=== PATIENT | female | born 1960 | race African-American/Black ===

== ENCOUNTER 2017-09-04 12:29 | Emergency (ER) | payer OTHER ==
[~2017-09-04] VITALS: Ht 174 cm; Wt 69.0 kg
[~2017-09-04 12:29] MED LIST: ACET325T11 PO; BUPR150T3 PO; FLON0.053; TOPA100T8 PO; TRAZ150T75 PO; ZIPR40 PO
[2017-09-04 12:32] VITALS: BP 151/75; PULSE 87; RESP 16; TEMP 98.3; O2SAT 99
[2017-09-04] MEDS ORDERED: ZIPR20 PO (12:57)
[2017-09-04] MEDS ORDERED: LISI10TA3 PO (12:57)
[2017-09-04] MEDS ORDERED: WELLTAB39 PO (12:57)
[2017-09-04] MEDS ORDERED: GEOD80CA PO (12:57)
[2017-09-04] MEDS ORDERED: [UNRECOGNIZED DRUG - CODE] T-DERMAL (12:57)
[2017-09-04] MEDS ORDERED: ATOR20TA15 PO (12:57)
[2017-09-04] MEDS ORDERED: EFFE150C PO (12:57)
--- NOTE | 2017-09-04 13:33 | RADRPT ---
EXAM DATE/TIME: 09/04/2017 12:59 [facility] COMPARISON: None. INDICATIONS : <<Left 4th digit pain; twisted this morning. >> MEDICAL HISTORY : None. SURGICAL HISTORY : None. ENCOUNTER: Initial ACUITY: 1 day PAIN SCORE: 9/10 LOCATION: Left 4th digit; hand. FINDINGS: Examination of the fourth digit of the left hand demonstrates no evidence of fracture or dislocation. No radiopaque foreign bodies are seen. The soft tissues are swollen at the fourth finger. CONCLUSION: Soft tissue swelling at the left fourth finger. No acute bony abnormality identified. Domo Webb MD on September 04, 2017 at 13:30 Board Certified Radiologist. This report was verified electronically.
[2017-09-04] MEDS ORDERED: ACETAMINOPHEN/HYDROcodone 325 MG/5 MG TAB PO ONE (14:00)
--- NOTE | 2017-09-04 14:05 | PD ---
HPI Chief Complaint: Injury Time Seen by Provider: 12:39 Travel History International Travel<30 days: No Contact w/Intl Traveler<30days: No Traveled to known affect area: No History of Present Illness HPI 57-year-old female that presents to the ED for evaluation of injury to her left fourth finger. Patient reports that this happened this morning. Per patient she was walking her dog when her dog ran away and the leash the dog caught her on her left fourth digit. She had a lot of pain and discomfort especially with extension of the left 4 digit. Per patient she cannot do it without assistance. Patient does have swelling and bruising noted on the dorsal aspect of the digit. Good capillary refill. Sensation intact bilaterally. No obvious open skin noted. Very tender to touch. Allergies to different antibiotics. Pain per patient is 6 out of 10. Gets worse with movement and touch. No prior injuries. PFSH Past Medical History Hx Anticoagulant Therapy: No ADD: Yes ADHD: Yes Arthritis: No Asthma: Yes (as a child) Blood Disorders: No Bipolar Disorder: Yes Anxiety: Yes Depression: Yes Cancer: No Cardiovascular Problems: Yes (HTN, CHOL) High Cholesterol: Yes Chemotherapy: No COPD: No Diabetes: Yes Diminished Hearing: No Endocrine: No Gastrointestinal Disorders: Yes GERD: Yes Genitourinary: No Hypertension: Yes Immune Disorder: No Musculoskeletal: No Neurologic: Yes (sciatic nerve) Psychiatric: Yes Reproductive: No Respiratory: No Radiation Therapy: No Schizophrenia: Yes Sleep Apnea: Yes ?: Not Menopausal: No : 6 Para: 2 Tubal Ligation: Yes Past Surgical History Abdominal Surgery: Yes Cardiac Surgery: No Section: Yes Ear Surgery: No Endocrine Surgery: No Eye Surgery: No Genitourinary Surgery: No Gynecologic Surgery: Yes () Oral Surgery: No Thoracic Surgery: No Other Surgery: Yes Social History Alcohol Use: No Tobacco Use: Yes (06/28 PPD) Allergies-Medications (Allergen,Severity, Reaction): Coded Allergies: ampicillin (Unverified Allergy, Severe, RASH, 09/04/17) bacitracin (Unverified Allergy, Severe, RASH, 09/04/17) erythromycin base (Unverified Allergy, Severe, HIVES, 09/04/17) gramicidin D (Unverified Allergy, Severe, RASH, 09/04/17) neomycin (Unverified Allergy, Severe, RASH, 09/04/17) polymyxin B (Unverified Allergy, Severe, RASH, 09/04/17) Reported Meds & Prescriptions Reported Meds & Active Scripts Active Hydrocodone-Acetaminophen 5-325 mg Tab 1 Tab PO Q6H PRN Diclofenac Sodium DR (Diclofenac Sodium) 75 Mg Tabdr 75 Mg PO BID PRN Reported Daytrana Patch 9 HR (Methylphenidate Patch 9 HR) 30 Mg/9 Hr Patch 1 Patch T- DERMAL DAILY Remove after 9 hours Lisinopril 10 Mg Tab 10 Mg PO DAILY Atorvastatin (Atorvastatin Calcium) 20 Mg Tab 20 Mg PO DAILY Effexor XR 24 HR (Venlafaxine HCl) 150 Mg Cap 300 Mg PO DAILY Wellbutrin Xl 24 HR (Bupropion HCl) 300 Mg Tab 450 Mg PO DAILY Geodon (Ziprasidone) 80 Mg Cap 80 Mg PO HS Geodon (Ziprasidone) 20 Mg Cap 20 Mg PO DAILY Review of Systems Except as stated in HPI: all other systems reviewed are Neg Physical Exam Narrative GENERAL: SKIN: Warm and dry. HEAD: Atraumatic. Normocephalic. EYES: Pupils equal and round. No scleral icterus. No injection or drainage. ENT: No nasal bleeding or discharge. Mucous membranes pink and moist. NECK: Trachea midline. No JVD. CARDIOVASCULAR: Regular rate and rhythm. RESPIRATORY: No accessory muscle use. Clear to auscultation. Breath sounds equal bilaterally. GASTROINTESTINAL: Abdomen soft, non-tender, nondistended. Hepatic and splenic margins not palpable. MUSCULOSKELETAL: Extremities without clubbing, cyanosis, or edema. No obvious deformities. Full range of motion of the upper and lower extremity bilaterally with exception of the left fourth digit of the left hand. Patient does have significant bruising and swelling on the dorsal aspect of the left fourth digit on the PIP joint. She has the finger flexed at this level and cannot extend it without help. Patient can extend it passively up to 90 but with a lot of discomfort. She cannot do it otherwise. Good capillary refill. Sensation intact bilaterally. NEUROLOGICAL: Awake and alert. No obvious cranial nerve deficits. Motor grossly within normal limits. Five out of 5 muscle strength in the arms and legs. Normal speech. PSYCHIATRIC: Appropriate mood and affect; insight and judgment normal. Data Data Last Documented VS Vital Signs Date Time Temp Pulse Resp B/P (MAP) Pulse Ox O2 Delivery O2 Flow Rate FiO2 09/04/17 12:32 98.3 87 16 151/75 (100) 99 Orders Orders Finger ([id number]) (09/04/17 ) Mri Hand W/O Contrast (09/04/17 ) Splint Or Brace Apply/Monitor (09/04/17 13:45) Acetamin-Hydrocod 325-5 Mg (Spiro 5-325 (09/04/17 14:00) Ed Discharge Order (09/04/17 16:11) MDM Medical Decision Making Medical Screen Exam Complete: Yes Emergency Medical Condition: Yes Medical Record Reviewed: Yes Interpretation(s) Last Impressions Finger X-Ray 09/04/17 0000 Signed Impressions: Service Date/Time: Monday, September 04, 2017 12:59 - CONCLUSION: Soft tissue swelling at the left fourth finger. No acute bony abnormality identified. Domo Webb MD Last Impressions Finger X-Ray 09/04/17 0000 Signed Impressions: Service Date/Time: Monday, September 04, 2017 12:59 - CONCLUSION: Soft tissue swelling at the left fourth finger. No acute bony abnormality identified. Domo Webb MD MRI showed anterior subluxation of the middle phalanx associated with some dorsal ligamentous injury and possible hairline fracture of proximal phalanx. flexor tendon intact. Differential Diagnosis Fracture versus sprain versus strain versus contusion versus tendon injury Narrative Course 57-year-old female that presents to the ED for evaluation of left fourth digit injury. Patient was properly examined and was found to have signs and symptoms concerning for bony injury versus ligamental injury. X-ray was done and was negative for this. Patient still having a lot of difficulty extending the finger. Spoke with Dr. Marlow over the phone who recommends MRI, splint and follow-up outpatient. Patient was told this and agrees with plan. MRI was ordered. MRI show what appears to be her long fracture as well as what appears to be likely injury to the dorsal ligamentous aspect of the digit. At this time patient will be put in splint. Patient was told results. Given copy of MRI. Patient was given prescription for Lortab and diclofenac sodium. Patient understands she needs to follow with hand surgeon this week. See ED worsening symptoms. Follow with PCP. Diagnosis Primary Impression: Finger fracture, left Qualified Codes: S62.645A - Nondisplaced fracture of proximal phalanx of left ring finger, initial encounter for closed fracture Additional Impression: Ligament tear Referrals: Agustin Sommer III, MD,Hussain Beckman MD, MD,Mary Ann Bledsoe MD Patient Instructions: Narcotic given in the ED, General Instructions Additional Instructions: Take medications as prescribed. Follow-up with hand surgeon this week. Call your primary to refer you to one or you can follow with one of the ones provided. See ED for any worsening symptoms. Do not drink or drive while taking pain medication. Apply ice or heat as needed for pain Med/Other Pt SpecificInfo: Prescription(s) given Scripts Hydrocodone-Acetaminophen (Hydrocodone-Acetaminophen) 5-325 mg Tab 1 TAB PO Q6H Y for PAIN, #12 TAB 0 Refills Prov: Paulo Hallman MD 09/04/[address] (Diclofenac Sodium DR) 75 Mg Tabdr 75 MG PO BID Y for PAIN SCALE 1 TO 10, #20 TAB 0 Refills Prov: Paulo Hallman MD 09/04/17 Disposition: 01 DISCHARGE HOME Condition: Rehan Roque Sep 04, 2017 14:05
[2017-09-04] MEDS ORDERED: DICL75TA PO (14:08)
[2017-09-04] MEDS ORDERED: HYDR-3516 PO (14:08)
[2017-09-04 15:32] VITALS: RESP 19
--- NOTE | 2017-09-04 16:08 | RADRPT ---
EXAM DATE/TIME: 09/04/2017 15:22 [facility] COMPARISON: None. INDICATIONS : <<Pt injured 4th digit walking dog with leash. Pulling injury.>> MEDICAL HISTORY : Hypertension. SURGICAL HISTORY : section. ENCOUNTER: Initial ACUITY: 1 day PAIN SCORE: 4/10 LOCATION: Left 4th digit TECHNIQUE: Multiplanar, multisequence MRI examination was performed without contrast. FINDINGS: The middle phalanx is subluxed anteriorly at the proximal interphalangeal joint, probably associated with some dorsal ligamentous injury. On the T1-weighted images there is the suggestion of a nondispla adriana hairline fracture in the distal portion of the proximal phalanx. The surrounding soft tissue swel ling. Flexor tendon appears intact. CONCLUSION: 1. Anterior subluxation of the middle phalanx at the proximal interphalangeal joint of the fourth fin ana with a questionable hairline fracture of the proximal phalanx. There is surrounding subcutaneous edema. Domo Webb MD on September 04, 2017 at 16:01 Board Certified Radiologist. This report was verified electronically.
== END 2017-09-04 18:57 | disposition home or self-care (01) ==
LOC: PHEFT 12:29
DX: S62.645A Nondisplaced fracture of proximal phalanx of left ring finger, initial encounter for closed fracture (principal); F41.8 Other specified anxiety disorders; E11.9 Type 2 diabetes mellitus without complications; I10 Essential (primary) hypertension; F20.9 Schizophrenia, unspecified; F17.210 Nicotine dependence, cigarettes, uncomplicated; W23.0XXA Caught, crushed, jammed, or pinched between moving objects, initial encounter; Y93.K1 Activity, walking an animal
CPT/HCPCS: 29130; 73140; 73218